=== PATIENT | female | born 1960 | race American Indian/Alaskan Native ===

== ENCOUNTER 2019-06-15 12:38 | Emergency (ER) | payer MEDICARE ==
[~2019-06-15] VITALS: Ht 172.7 cm; Wt 81.4 kg
[2019-06-15 12:42] VITALS: BP 169/79
--- NOTE | 2019-06-15 13:04 | NUR ---
PT. SEEMS TO BE AGITATED AT THE QUESTIONS I'M ASKING. REFUSED TO ANSWER PAST MEDICAL HX AND OTHER PERTINENT QUESTIONS.
--- NOTE | 2019-06-15 13:11 | NUR ---
WAS TOLD MULTIPLE TIMES BY PT. "DO YOU WANT TO LOSE YOUR LICENSE". PT. IS SITTING QUIETLY IN ROOM, STOPPED ASKING HER QUESTIONS ABOUT HER PAST MEDICAL HX. INFORMED HER OUR PA WAS D/C HER AND SHE WAS PLEASED.
== END 2019-06-15 13:20 | disposition home or self-care (01) ==
LOC: ER 12:39
DX: M72.0 Palmar fascial fibromatosis [Dupuytren] (principal); M79.645 Pain in left finger(s); J44.9 Chronic obstructive pulmonary disease, unspecified; F17.200 Nicotine dependence, unspecified, uncomplicated
CPT/HCPCS: 99281

== ENCOUNTER 2024-01-02 23:02 | Emergency (ER) | payer MEDICARE, OTHER ==
[~2024-01-02] VITALS: Ht 170.2 cm; Wt 75.0 kg
[2024-01-03] MEDS ORDERED: ONDA4TAB12 PO (04:12)
[2024-01-03] MEDS ORDERED: OMEP20TA43 PO (04:12)
[2024-01-03] MEDS ORDERED: LISI1TAB49 PO (04:12)
[2024-01-03] MEDS ORDERED: PRAZ5CAP PO (04:12)
[2024-01-03] MEDS ORDERED: ACET-812 PO (04:12)
[2024-01-03] MEDS ORDERED: [UNRECOGNIZED DRUG - CODE] TOP (04:12)
[2024-01-03] MEDS ORDERED: NITR0.4T51 SL (04:12)
[2024-01-03] MEDS ORDERED: ASPI81TA52 PO (04:12)
[2024-01-03] MEDS ORDERED: LIDO1ADH78 TOP (04:12)
[2024-01-03] MEDS: cloNIDine 0.1 mg tablet PO ONE (04:48)
[2024-01-03 04:54] VITALS: BP 162/68; PULSE 88; RESP 16; TEMP 98; O2SAT 99
== END 2024-01-03 05:00 | disposition home or self-care (01) ==
LOC: ER 23:03 → EEVIPCON 23:03 → ER 01-03 05:00
DX: T74.21XA Adult sexual abuse, confirmed, initial encounter (principal)
CPT/HCPCS: 99284

== ENCOUNTER 2024-01-30 22:50 | Emergency (ER) | payer OTHER ==
[~2024-01-30] VITALS: Ht 170.2 cm; Wt 76.4 kg
[~2024-01-30 22:50] MED LIST: ACET-812 PO; ASPI81TA52 PO; LIDO1ADH78 TOP; LISI1TAB49 PO; NITR0.4T51 SL; OMEP20TA43 PO; ONDA4TAB12 PO; PRAZ5CAP PO; [UNRECOGNIZED DRUG - CODE] TOP
[2024-01-30 23:04] VITALS: BP 130/56; PULSE 82; RESP 18; TEMP 98; O2SAT 97
[2024-01-30 23:39] LABS: BASOPHILS # (AUTO) 0.1 X10'3 (0-0.2); BASOPHILS % (AUTO) 0.8 % (0-1); EOSINOPHILS # (AUTO) 0.6 X10'3 (0-0.9); EOSINOPHILS % (AUTO) 4.4 % (0-6); HEMATOCRIT 35.7 % (35.0-45.0); HEMOGLOBIN 11.9 g/dl (12.0-16.0); LYMPHOCYTES # (AUTO) 3.6 X10'3 (1.1-4.8); LYMPHOCYTES % (AUTO) 24.6 % (21-51); MEAN CORPUSCULAR HEMOGLOBIN 28.3 PG (27.0-31.0); MEAN CORPUSCULAR HGB CONC 33.3 g/dL (33.0-36.5); MEAN PLATELET VOLUME 7.1 FL (7.4-10.4); MONOCYTES # (AUTO) 0.6 X10'3 (0-0.9); MONOCYTES % (AUTO) 4.2 % (2-12); NEUTROPHILS # (AUTO) 9.6 X10'3 (1.8-7.7); PLATELET COUNT 421 X10'3 (140-440); RED CELL DISTRIBUTION WIDTH 15.6 % (11.5-14.5); WHITE BLOOD COUNT 14.6 X10'3 (4.5-11.0)
[2024-01-30 23:58] LABS: ALBUMIN 3.2 G/DL (3.4-5.0); ANION GAP 9 (8-16); BLOOD UREA NITROGEN 19 MG/DL (7-18); BUN/CREATININE RATIO 18.3 (10.0-20.0); CALCIUM 8.4 MG/DL (8.5-10.1); CHLORIDE 104 MMOL/L (99-107); CREATININE 1.04 MG/DL (0.40-0.90); GLUCOSE 109 MG/DL (70-104); POTASSIUM 3.2 MMOL/L (3.5-5.1); PRO BRAIN NATRIURETIC PEPTIDE 202 PG/ML (0-125); SODIUM 143 MMOL/L (135-145); TOTAL CARBON DIOXIDE 30.3 MMOL/L (24-32); eCRCL 53 ML/MIN; eGFR 53 ML/MIN
== END 2024-01-31 03:10 | disposition left against medical advice (07) ==
LOC: ER 22:50
DX: R06.02 Shortness of breath (principal); Z53.21 Procedure and treatment not carried out due to patient leaving prior to being seen by health care provider
CPT/HCPCS: 36415; 71045; 80048; 83880; 84484; 85025; 93005; 99281